=== PATIENT | female | born 1960 | race Caucasian/White ===

== ENCOUNTER 2025-05-11 10:05 | Outpatient (CLI) | payer MEDICAID, SELFPAY ==
--- NOTE | ~2025-05-11 | XR_ITS ---
EXAMINATION: XR wrist LT min 3V, 05/11/2025 10:13 GRADUATE STUDIES DEAN HISTORY: L wrist pain COMPARISON: No comparisons available. Findings: No acute fracture or malalignment. No significant degenerative changes. Soft tissues unremarkable. Impression: No acute fracture or malalignment. Reviewed, dictated and finalized at location P. UATE STUDIES DEAN Impression: No acute fracture or malalignment.
== END 2025-05-11 10:06 | disposition home or self-care (01) ==
LOC: MICIMG 10:10
DX: M25.532 Pain in left wrist (principal)
CPT/HCPCS: 73110